=== PATIENT | male | born 1955 | race Caucasian/White ===

== ENCOUNTER 2017-01-16 09:54 | Outpatient (CLI) | payer BC ==
[2017-01-16 11:21] LABS: #Eosinphils 0.1 thou/uL (0.0-0.7); #Lymphocytes 1.8 thou/uL (1.20-3.40); #Monocytes 0.7 thou/uL (0.11-0.59); #Neutrophils 3.9 thou/uL (1.40-6.50); %Basophils 0.5 % (0.0-1.0); %Eosinophils 1.1 % (0.0-10.0); %Lymphocytes 27.6 % (21.0-51.0); %Monocytes 10.5 % (0.0-10.0); Hematocrit 43.8 % (42.0-52.0); Mean Platelet Volume 6.6 fL (7.4-10.4); Red Blood Cell (RBC) Count 4.27 mill/uL (4.70-6.10); White Blood Cell (WBC) Count 6.6 thou/uL (4.8-10.8)
== END 2017-01-16 09:55 | disposition home or self-care (01) ==
LOC: LABBT 09:54
PROVIDERS: ATTEND Orthopaedic Surgery Hand Surgery
DX: Z01.812 Encounter for preprocedural laboratory examination (principal); G56.02 Carpal tunnel syndrome, left upper limb; G56.22 Lesion of ulnar nerve, left upper limb
CPT/HCPCS: 85025

== ENCOUNTER 2017-01-20 05:50 | Day surgery (SDC) | payer BC ==
[2017-01-16 10:30] VITALS: BMI 25.0
[2017-01-20] MEDS ORDERED: CEFAZOLIN/Water 2 GM/20 ML SYRINGE ONE (06:38)
[2017-01-20] MEDS ORDERED: Fentanyl 250 MCG/5 ML VIAL ONE (06:54)
[2017-01-20] MEDS ORDERED: Midazolam HCl 2 mg/2 ml Vial ONE (06:54)
[2017-01-20] MEDS ORDERED: Bupivacaine PF 0.5% 30 ML VIAL ONE (07:48)
[2017-01-20] MEDS ORDERED: Betamet Acet/Betamet Na Ph 30 MG/5 ML VIAL ONE (07:48)
[2017-01-20] MEDS ORDERED: Bacitracin Zinc Ointment 30 gm TUBE ONE (07:48)
[2017-01-20] MEDS ORDERED: Dexamethasone 20 MG/5 ML VIAL ONE (08:07)
[2017-01-20] MEDS ORDERED: PHENYLEPHRINE-NS 100 MCG/ML 10 ML SYRINGE ONE (08:07)
[2017-01-20] MEDS ORDERED: Ketorolac Tromethamine 30 MG/ML VIAL ONE ×2 (08:07→10:57)
[2017-01-20] MEDS ORDERED: Ondansetron HCl/PF 4 MG/2 ML Vial ONE (08:07)
[2017-01-20] MEDS ORDERED: Lidocaine 1% PF 5 ML VIAL ONE (08:07)
[2017-01-20] MEDS ORDERED: ePHEDrine/0.9% NaCl/PF SYRINGE 50 mg/10 ml ONE (08:07)
[2017-01-20] MEDS ORDERED: Propofol 200 MG/20 ML VIAL ONE (08:07)
[2017-01-20] MEDS ORDERED: Fentanyl 100 MCG/2 ML VIAL ONE (10:52)
[2017-01-20] MEDS ORDERED: HYDROcodone/Acetaminophen 5/325 mg Tablet ONE (11:33)
--- NOTE | 2017-01-21 08:48 | OP ---
DATE OF PROCEDURE: 01/20/2017 PREOPERATIVE DIAGNOSES: Left cubital tunnel, Perez stage 2 and left carpal tunnel syndrome. FINDNGS: 1. Small amount of stippling without true allograft formation over the median nerve at the wrist wi thout tenosynovitis, carpal canal left. 2. Flattening of the ulnar nerve within the cubital tunnel just proximal to it all the way to the l evel of the heads of the flexor carpi ulnaris over 50%, indicative of severe compression. PROCEDURES PERFORMED: 1. Left median nerve neuroplasty at the wrist. 2. Ulnar nerve neuroplasty at the elbow/cubital tunnel release. 3. Submuscular transposition of ulnar nerve at the elbow. COMPLICATIONS: None. TOURNIQUET TIME: 90 minutes. ESTIMATED BLOOD LOSS: Approximately 15 mL. INJECTABLE: A 2 mL Celestone in the carpal canal and 3 mL Celestone in the ulnar nerve. INDICATIONS: Failed conservative treatment with symptoms and electrodiagnostic criteria of the neur ocompressive listed above. DESCRIPTION OF PROCEDURE: After successful general endotracheal anesthesia, the limb was prepped an d draped. Anesthesia provided by [facility]. Them the entire upper extremity was prepped and draped free with the axilla available and a sterile tourniquet was applied. We outlined the standard carpal tunnel 2.5 cm incision in line with the rin g finger and as far distal as Bagley's cardinal line as far proximal as 5 mm distal volar wrist flex ion crease. We carried through the skin, subcutaneous tissue to identify the transverse carpal liga ment protecting all neurovascular structures. We then began to release the transverse carpal ligame nt from the mid portion distally. The motor branch was visualized and spared with a type 1 takeoff and then reversed this and began to release with a Stanton blade and tenotomy scissor combination und er direct visualization, the proximal half of the transcarpal ligament until we had reached the edge of the palmar fascia of the distal pole, which was also slightly released. Now the median nerve ca n visualized, there was no evidence of a true flattening, but there was early stippling and erythema along with a 4-5 mm area in the center canal. It was here we dripped 2 mL of Celestone, then close d the incision with hemostasis using interrupted 4-0 nylon suture mattress pattern. Bulky dressing was applied and the patient did not leave the operating room, because of the need to perform the sec ond half procedure. We now turned our attention to the elbow area, we outlined with marker. The medial epicondyle, olec ranon and outlined incision, which was 7 cm distal and 10 cm proximal to the medial epicondyle, but along the midline at the olecranon just slightly curved medially at the olecranon, but with no incis ion beyond the tip. We then continued the exsanguination with a tourniquet 250 mmHg pressure. I ma de an incision through skin, subcutaneous tissue, and then dissected the flap to allow for the media l antebrachial cutaneous nerves remain with the skin while still visualizing the appropriate bone an d joint structures of the region. The ulnar nerve was located just proximal to the triceps and saw was beginning to flatten as we entered the cubital tunnel so force. We performed the release of the ulnar nerve from the cubital tunnel proximally almost to the point of crossover the ulnar nerve and intermuscular septum. Then, we turned and performed the release of the distal end. It was here th at the nerve was flat beginning approximately 2-3 mm before the entrance to the [place] cubital tunne l and then we released the cubital tunnel and into the flexor carpi radialis , the nerve was fl at. He did have some return of normal size, but the fascia was even thicker at the level of the fir st carpal ulnaris fascia. Now, we slowly dissected the nerve free until it could be transposed anteriorly approximately 3 cm a t the level of the medial epicondyle. There was no undue tension noted on this construct. We then removed the intermuscular septum for a space of 9 cm and this allowed for excellent visualization of the medial pole flexor pronator group. The intermuscular was released at the epicondyle, and jaison ed for 14 cm and then slowly released at the superior portion of the wound. We then made a Z-shaped double L incision in the flexor pronator group with the ulnar nerve being el evated, we visualized and spared the collateral ligament, and then laid the ulnar nerve in the bed c reated by this elevation of the flexor pronator. We placed 3 mL of Celestone along this portion all the nerve and then gently covered the flexor pronator back in a lengthened fashion using a Z-plasty technique with five individual sutures of [id number] #1 Ethibond. The patient tolerated this well and no undue tension on the nerve and we prepared for closure. Remainder of the Celestone was placed over the nerve itself. The patient did have a bulky dressing fully applied and the wound was closed, but before that the proximal cubital tunnel incision was closed with a running 4-0 Monocryl subcutaneous deep dermal suture and then Steri-Strips on the skin with Benzoin. Bulky dressings ap plied at the elbow with no bacitracin, only Adaptic, 4x4s, Kerlix. The arm was splinted with the el bow in neutral position and the forearm in neutral position with a splint, Orthoglass, and the patie nt left the operating room without evidence of anesthetic or operative complication.
== END 2017-01-20 12:00 | disposition home or self-care (01) ==
LOC: SDC 05:50
PROVIDERS: ATTEND Orthopaedic Surgery Hand Surgery
PROC: 01N50ZZ Release Median Nerve, Open Approach (ICD-10-PCS; principal; 2017-01-20)
PROC: 01U407Z Supplement Ulnar Nerve with Autologous Tissue Substitute, Open Approach (ICD-10-PCS; principal; 2017-01-20)
DX: G56.22 Lesion of ulnar nerve, left upper limb (principal); G56.02 Carpal tunnel syndrome, left upper limb; F17.200 Nicotine dependence, unspecified, uncomplicated; J44.9 Chronic obstructive pulmonary disease, unspecified; M19.90 Unspecified osteoarthritis, unspecified site; J30.9 Allergic rhinitis, unspecified; E78.5 Hyperlipidemia, unspecified; I11.0 Hypertensive heart disease with heart failure; Z79.899 Other long term (current) drug therapy; Z79.51 Long term (current) use of inhaled steroids; Z96.641 Presence of right artificial hip joint; Z98.890 Other specified postprocedural states; Z80.9 Family history of malignant neoplasm, unspecified
CPT/HCPCS: 96374; J0702; J1100; J1885; J2001; J2250; J2405; J2704; J3010; S0020

== ENCOUNTER 2017-03-30 10:03 | Outpatient (CLI) | payer BC ==
[2017-03-30 11:50] LABS: Hemoglobin 14.4 g/dL (14.0-18.0); Mean Corpuscular HGB CONC 33.2 g/dL (32.0-36.0); Mean Corpuscular Hemoglobin 34.5 pg (27.0-31.0); Mean Platelet Volume 6.9 fL (7.4-10.4); Platelet Count 216 thou/uL (130-400); RBC Distribution Width 13.1 % (11.5-14.5); Red Blood Cell (RBC) Count 4.16 mill/uL (4.70-6.10); White Blood Cell (WBC) Count 6.5 thou/uL (4.8-10.8)
[2017-03-30 11:56] LABS: Bilirubin Negative (Negative); Blood, Urine Small (Negative); Clarity CLEAR (Clear); Glucose, Urine (Dipstick) Negative (Negative); Leukocyte Negative (Negative); Nitrite Negative (Negative); Protein, Urine (Dipstick) Negative (Neg-Trace); Specific Gravity, Urine 1.014 (1.002-1.036); Urobilinogen 0.2 mg/dL (0.2-1.0)
[2017-03-30 12:01] LABS: Bacteria/HPF None Seen HPF (None Seen); Hyaline Casts/LPF 0-3 HYALINE CAST LPF (0-3 Hyaline); INR-International Normal Ratio 0.9; PTT 33.2 SEC (22.9-36.1); Prothrombin Time 12.3 SEC (12.0-14.7); Squamous Epithelial None Seen HPF (0-3); WBC/HPF 0-3 HPF (0-3)
--- NOTE | 2017-03-30 12:14 | RAD ---
CHEST TWO VIEWS: History: Pre op. Comparison: None. FINDINGS: There is mild thickening of the right minor fissure. Lungs are clear. No pneumothorax or effusion. No acute osseous abnormality. Moderate degenerative disease at the thoracolumbar junction. IMPRESSION: No acute intrathoracic abnormality. POS: [facility]
[2017-03-30 12:34] LABS: ALT (SGPT) 22 U/L (8-55); AST (SGOT) 26 U/L (5-34); Albumin 4.3 g/dL (3.4-4.8); Alkaline Phosphatase 97 U/L (40-150); Anion Gap 15 mmol/L (10-20); BUN (Urea Nitrogen) 16 mg/dL (8.4-25.7); Bilirubin, Total 0.8 mg/dL (0.2-1.2); Calc. Creatinine Clearance 0 mL/min (70-130); Calcium 9.5 mg/dL (7.8-10.44); Carbon Dioxide 23 mmol/L (23-31); Chloride 99 mmol/L (98-107); Estimated GFR-MDRD 66; Globulin 2.8 g/dL (2.4-3.5); Glucose 88 mg/dL (80-115); Potassium 4.6 mmol/L (3.5-5.1); Protein, Total 7.1 g/dL (5.8-8.1); Sodium 132 mmol/L (136-145)
--- NOTE | 2017-04-24 16:30 | EKG ---
Test Reason : Blood Pressure : / mmHG Vent. Rate : 095 BPM Atrial Rate : 095 BPM P-R Int : 144 ms QRS Dur : 078 ms QT Int : 316 ms P-R-T Axes : 070 050 060 degrees QTc Int : 397 ms Normal sinus rhythm Normal ECG No previous ECGs available Confirmed by DR. Vidhya KATE ([id number]) on 04/24/2017 4:29:38 PM Referred By: CLAUDIA Confirmed By:DR. Vidhya KATE
== END 2017-03-30 10:04 | disposition home or self-care (01) ==
LOC: LABBT 10:03
PROVIDERS: ATTEND Urology
DX: Z01.818 Encounter for other preprocedural examination (principal); R97.20 Elevated prostate specific antigen [PSA]
CPT/HCPCS: 71046; 80053; 81001; 85027; 85610; 85730; 87081; 87086; 93005; 93010

== ENCOUNTER 2017-04-06 05:54 | Day surgery (SDC) | payer BC ==
[2017-03-30 10:32] VITALS: BMI 25.3
[2017-04-06] MEDS ORDERED: Levofloxacin 500 mg/D5W 100 ml Premix Bag ONE (06:04)
[2017-04-06] MEDS ORDERED: Fentanyl 100 MCG/2 ML VIAL ONE (06:15)
[2017-04-06] MEDS ORDERED: HYDROmorphone 0.5 MG/0.5 ML SYRINGE ONE (06:15)
[2017-04-06] MEDS ORDERED: cefTRIAXone\\ROCEPHIN 1 GM, Syringe 0.4 ML in Sterile Water 9.6 ML SLOW IVP SCH (07:45)
[2017-04-06] MEDS ORDERED: Phenazopyridine HCl 97.5 MG TABLET ONE (08:18)
--- NOTE | 2017-04-06 08:30 | OP ---
DATE OF PROCEDURE: 04/06/2017 PRIMARY CARE PHYSICIAN: Gabrielle San M.D. PREOPERATIVE DIAGNOSES: 1. A 61-year-old male with history of 40-50 pack year smoking history, elevated PSA. 2. Microscopic hematuria. 3. Benign prostatic hypertrophy symptoms, exacerbated with narcotic use, nasal decongestants. POSTOPERATIVE DIAGNOSES: 1. A 61-year-old male with history of 40-50 pack year smoking history, elevated PSA. 2. Microscopic hematuria. 3. Benign prostatic hypertrophy symptoms, exacerbated with narcotic use, nasal decongestants. PROCEDURES: 1. Flexible cystoscopy. 2. Transrectal ultrasound 12 needle prostate biopsy. SURGEON: Maisha Escobar D.O. ANESTHESIA: LMA. ESTIMATED BLOOD LOSS: Minimal. COMPLICATIONS: None. INTRAOPERATIVE FINDINGS: 1. Cystoscopy is grossly unremarkable, mild BPH component. 2. Bilateral ureteral orifices approximately 5-8 mm away from the bladder neck. 3. Transrectal ultrasound without any significant lesions. INDICATIONS FOR PROCEDURE AND HISTORY: Mr. Parish is a pleasant 61-year-old male with history of 40-50 pack year smoking history, COPD, presented for evaluation of elevated PSA of 5.08. Digital rectal exam is 30-35 gram prostate with no discrete nodularity. His PVR initially is mildly elevated at 49 mL. He related to me worsening BPH symptoms of slow stream, hesitancy often exacerbated by narcotics and decongestants. I did initiated him on Flomax; however, this caused him to have dizziness, therefore transitioned to Rapaflo 4 mg 1 p.o. daily. He presents today for prostate biopsy under anesthesia. I did discuss with patient regarding options of local versus anesthesia. As he has a tendency for vasovagal episode with local procedures, needle is advised under exam under anesthesia. He desired to proceed. Risks and complications including bleeding, pain, infection, urosepsis, vasovagal episode, prolonged blood in the urine and stool reviewed with patient in detail and he desired to proceed. DESCRIPTION OF PROCEDURE: After an informed consent is signed, the patient is taken to the operating room, placed in a supine position with the genital area prepped and draped in the usual surgical sterile fashion. A flexible cystoscopy was initially performed which demonstrated normal anterior and posterior urethra. The prostatic urethra was entered demonstrating mild BPH component. There was no evidence of intravesical median lobe. The ureteral orifices bilaterally identified in normal orthotopic position, it is approximately 5-8 mm from the bladder neck. There was no significant trabeculation, bladder stones, bladder tumors were not appreciated. Bladder wash for urine cytology was obtained. At this time, we placed the patient in a lateral decubitus position with all pressure points padded and protected at all times. A transrectal ultrasound probe was placed under direct visualization. Prostate volume was measured first demonstrating urethral length of 4.1, with a 4.7, height of 2.8 cm, volume estimated to be 29 grams. A 12 needle prostate biopsy was performed uneventfully in a systematic manner. No significant hypodense lesions were appreciated on the ultrasound. He tolerated the procedure well. Patient will be discharged with ciprofloxacin for a course of 3 days, Colace p.r.n. he has been tolerating low-dose Rapaflo 4 mg one by mouth daily without any issues, however does relate it is not as efficacious as Flomax. It excessive patient of obstructive urinary symptoms, inform patient that he may increase his Rapaflo to 8 mg one by mouth daily versus 4 mg one by mouth twice a day. Return to clinic next week for pathology review. [facility]
== END 2017-04-06 10:15 | disposition home or self-care (01) ==
LOC: SDC 05:54
PROVIDERS: ATTEND Urology
PROC: 0VB07ZX Excision of Prostate, Via Natural or Artificial Opening, Diagnostic (ICD-10-PCS; principal; 2017-04-06)
DX: R97.20 Elevated prostate specific antigen [PSA] (principal); R31.29 Other microscopic hematuria; J44.9 Chronic obstructive pulmonary disease, unspecified; M19.90 Unspecified osteoarthritis, unspecified site; F17.200 Nicotine dependence, unspecified, uncomplicated; J30.9 Allergic rhinitis, unspecified; E78.5 Hyperlipidemia, unspecified; I11.9 Hypertensive heart disease without heart failure; Z79.51 Long term (current) use of inhaled steroids; Z79.899 Other long term (current) drug therapy; Z96.641 Presence of right artificial hip joint; Z98.890 Other specified postprocedural states
CPT/HCPCS: 88112; 88305; 88341; 88342; A4216; J0131; J0696; J1170; J1956; J3010

== ENCOUNTER 2017-05-07 08:33 | Outpatient (CLI) | payer BC ==
[2017-05-07] MEDS ORDERED: Iopamidol 370 76% 100 ML VIAL ONE (09:00)
--- NOTE | 2017-05-07 10:13 | CT ---
PRE AND POSTCONTRAST ENHANCED CT IMAGES OF ABDOMEN AND PELVIS: HISTORY: Patient with prostate cancer. FINDINGS: IV contrast was given as well as precontrast-enhanced axial images were obtained from the dome of the diaphragm through the pubic symphysis. The lung bases are unremarkable. No evidence of free intraperitoneal air is seen. The liver, spleen, pancreas, gallbladder, adrenal glands, and kidneys were unremarkable. No evidence of hydroureteral nephrosis is seen. No evidence of periaortic lymphadenopathy is seen. Some descending and sigmoid colonic diverticulosis is seen. There is an infrarenal abdominal aortic aneurysm axial dimensions measuring 5.6 x 5.4 cm. Superior i nferior length measures 8.9 cm. The aneurysm begins approximately 2 cm above the takeoff of the tom l arteries. The aneurysm extends all the way to but does not extend into the iliac bifurcations. No definite evidence of fat stranding seen surrounding the aneurysm. The superior mesenteric artery as well as celiac arteries are patent and are not involved within the aneurysm. The inferior mesente ceci artery is seen originating from the anterior aspect of the aneurysm. There does appear to be mariaelena w within the MIR. There does appear to be a right inguinal hernia present without evidence of significant bowel within it. There do appear to be some mild areas of sclerotic change seen in the right iliac bone just lateral t o the upper aspect of the right SI joint. The prostate gland is mildly enlarged. IMPRESSION: 1. Area of sclerotic change in the right iliac bone. Whether this represents a focal metastatic les ion I cannot determine. 2. No evidence of periaortic lymphadenopathy. 3. Infrarenal abdominal aortic aneurysm. 4. Right inguinal hernia. 5. Colonic diverticulosis. Findings were conveyed to Dr. Bria Barker by phone. She instructed us to allow the patient to leave , and she will have the patient follow with vascular surgery. CODE CR POS: [facility]
== END 2017-05-07 08:34 | disposition home or self-care (01) ==
LOC: SCSCT 08:33
PROVIDERS: ATTEND Urology
DX: C61 Malignant neoplasm of prostate (principal); R31.29 Other microscopic hematuria; I71.4 Abdominal aortic aneurysm, without rupture; K40.90 Unilateral inguinal hernia, without obstruction or gangrene, not specified as recurrent; K57.30 Diverticulosis of large intestine without perforation or abscess without bleeding
CPT/HCPCS: 74178

== ENCOUNTER 2017-05-29 09:48 | Outpatient (CLI) | payer BC ==
--- NOTE | 2017-05-29 15:15 | NM ---
NUCLEAR MEDICINE BONE SCAN: HISTORY: The patient has malignant neoplasm of prostate. COMPARISON: CT abdomen and pelvis 05/07/17. TECHNIQUE: Whole body imaging performed after intravenous administration of 30 mCi Technetium 99 MDP. There is uptake seen within both kidneys and urinary bladder. Moderate degenerative disease of the right acet abulum. Right hip arthroplasty. Moderate degenerative disease with mid foot and left great toe meta tarsophalangeal joint. Increased radiotracer uptake in the lower thoracic spine from degenerative change. IMPRESSION: No evidence of osseous metastatic disease. POS: [facility]
== END 2017-05-29 09:49 | disposition home or self-care (01) ==
LOC: NM 09:48
PROVIDERS: ATTEND Urology
DX: C61 Malignant neoplasm of prostate (principal)
CPT/HCPCS: 78306; A9503

== ENCOUNTER 2017-06-24 09:15 | Inpatient (IN) | payer BC ==
[2017-06-25] MEDS ORDERED: CEFAZOLIN/Water 2 GM/20 ML SYRINGE ONE (06:06)
[2017-06-25] MEDS ORDERED: Heparin 10,000 UNITS/1 ML VIAL 30,000 UNITS in Sodium Chloride 0.9% 1,000 ML FS SCH (06:45)
[2017-06-25] MEDS ORDERED: Norepinephrine 8 MG/0.9% NS 0 ML ONE (06:50)
[2017-06-25] MEDS ORDERED: Midazolam HCl 2 mg/2 ml Vial ONE ×2 (06:50→06:57)
[2017-06-25] MEDS ORDERED: Nitroglycerin 50 MG/250 ML BOT 0 ML ONE (06:50)
[2017-06-25] MEDS ORDERED: Fentanyl 250 MCG/5 ML VIAL ONE (06:50)
[2017-06-25] MEDS ORDERED: Famotidine/PF 20 mg/2ml Vial ONE (06:50)
[2017-06-25] MEDS ORDERED: Fentanyl 100 MCG/2 ML VIAL ONE ×4 (06:50→11:53)
[2017-06-25] MEDS ORDERED: Promethazine HCl 25 MG/ML VIAL SLOW IVP PRN (07:25)
[2017-06-25] MEDS ORDERED: Ondansetron HCl/PF 4 MG/2 ML Vial IVP PRN ×2 (07:25→10:19)
[2017-06-25] MEDS ORDERED: Promethazine HCl 25 MG/ML VIAL IM PRN ×2 (07:25→11:03)
[2017-06-25] MEDS ORDERED: ePHEDrine/0.9% NaCl/PF SYRINGE 50 mg/10 ml ONE ×2 (08:22→14:42)
[2017-06-25] MEDS ORDERED: Phenylephrine HCL 10 MG/ML VIAL ONE (08:22)
[2017-06-25] MEDS ORDERED: Albumin 5% 500 ML ONE (08:27)
[2017-06-25] MEDS ORDERED: Protamine Sulfate 50 MG/5 ML VIAL ONE (09:22)
[2017-06-25] MEDS ORDERED: hydrALAZINE 20 MG/ML VIAL SLOW IVP PRN (10:19)
[2017-06-25] MEDS ORDERED: Fentanyl 100 MCG/2 ML VIAL SLOW IVP PRN ×2 (10:19)
[2017-06-25] MEDS ORDERED: Nitroglycerin 50 MG/250 ML BOT 250 ML IVPB PRN (10:19)
[2017-06-25] MEDS ORDERED: Acetaminophen 325 MG TAB PO PRN (10:19)
[2017-06-25] MEDS ORDERED: Phenylephrine 10 MG/NS 250 ML 250 ML IVPB PRN (10:19)
[2017-06-25] MEDS ORDERED: diphenhydrAMINE 50 MG/ML VIAL IM PRN (11:03)
[2017-06-25] MEDS ORDERED: diphenhydrAMINE 25 MG CAP PO PRN (11:03)
[2017-06-25] MEDS ORDERED: Fentanyl 5000 MCG/250 ML CADD IVPB PRN (11:03)
[2017-06-25] MEDS ORDERED: diphenhydrAMINE 50 MG/ML VIAL IVP PRN (11:03)
[2017-06-25] MEDS ORDERED: Naloxone HCl 0.4 mg/ml Vial IV PRN (11:03)
[2017-06-25] MEDS ORDERED: Zolpidem Tartrate 5 MG TAB PO PRN (11:03)
[2017-06-25] MEDS ORDERED: Communication Order-Pharmacy FS SCH (11:15)
[2017-06-25 12:41] VITALS: BMI 25.0
--- NOTE | 2017-06-25 13:11 | CON ---
DATE OF SERVICE: 06/25/2017 SERVICE: Pulmonary Medicine. REASON FOR CONSULTATION: ICU patient. HISTORY OF PRESENT ILLNESS: The patient is a 61-year-old white male with past medical history significant for hypertension and dyslipidemia who presented to the hospital for an elective outpatient repair of an abdominal aortic aneurysm. He presented to the hospital in his usual state of health. He did not have any abrupt decompensation. The surgery was uncomplicated. He is being monitored in the ICU after this operation was performed. He has no complaints of chest discomfort, nausea, vomiting or diarrhea. He has a little bit of a belly tenderness which should be expected following this procedure. He has no leg discomfort. PAST MEDICAL HISTORY: 1. COPD. 2. Degenerative joint disease. 3. Hyperlipidemia. 4. Hypertension. 5. Allergic rhinitis. 6. Left internal carotid artery occlusion. 7. Prostate cancer. PAST SURGICAL HISTORY: 1. Right hip replacement. 2. Carpal tunnel surgery. 3. Cyst removed from back. 4. Open repair of abdominal aortic aneurysm. FAMILY HISTORY: Noncontributory. SOCIAL HISTORY: He smokes 1-1/2 packs on a daily basis. He quit smoking roughly 1 month prior to presentation. He had a [id number] history of smoking prior to presentation. He denies any significant alcohol or illicit drug use. He has no exposure to chemicals, dust asbestos or tuberculosis. ALLERGIES: No known drug allergies. MEDICATIONS: List of inpatient medications were reviewed. The outpatient medications follow: 1. Advair 250/50 one inhalation b.i.d. 2. Lisinopril 10 mg p.o. daily. 3. Atorvastatin 40 mg p.o. daily. 4. Aspirin 81 mg p.o. daily. 5. Chantix 1 mg p.o. b.i.d. REVIEW OF SYSTEMS: General, head, ears, eyes, nose, throat, cardiovascular, respiratory, GI, , musculoskeletal, neurologic and skin is negative except as mentioned in the HPI. PHYSICAL EXAMINATION: VITAL SIGNS: Afebrile, pulse 74, respirations 14, saturation 98% on 2 liters nasal cannula. GENERAL: The patient is awake and alert, in no apparent distress. LUNGS: Decent air entry. There is a slightly prolonged expiratory phase, but I do not appreciate wheezing, rhonchi or crackles. HEART: Normal rate, regular. ABDOMEN: Soft, nontender, nondistended. Bowel sounds are positive. MUSCULOSKELETAL: No cyanosis or clubbing. There is no pitting in the bilateral lower extremities. NEUROLOGIC: Grossly nonfocal. EXTREMITIES: Pedal pulses are 2+ and symmetric bilaterally. LABORATORIES: WBC 6.7, hemoglobin 14.7, platelets 244,000. Sodium 135. Basic metabolic profile is otherwise unremarkable with a creatinine of 0.9. Urinalysis is unremarkable. Recent urinary tract infection was present with Proteus. This was previously treated. ASSESSMENT: 1. Acute hypoxic respiratory failure, improving. 2. Chronic obstructive pulmonary disease without acute exacerbation. 3. Open abdominal aortic aneurysm repair, postop day #0. DISCUSSION AND PLAN: Pulmonary will be available while the patient is in the ICU for any issues that come up. At this point, he has no acute respiratory difficulties. We will wean oxygen as tolerated. Home medications for the most part will be continued. We will provide him with DuoNebs on an as needed basis during the hospital stay. We will add Dulera to replace his outpatient Advair. 70 minutes have been devoted to this patient in various activities. I personally reviewed all imaging studies and laboratory data noted within this document. For fifty percent of this time, I was interacting with the patient at the bedside or coordinating care with the care team. For the remainder of the time I was immediately available to the patient in the hospital unit. ANYA
[2017-06-25] MEDS: CEFAZOLIN/Water 2 GM/20 ML SYRINGE SLOW IVP SCH ×2 (14:39→22:14)
[2017-06-25] MEDS: Lactated Ringer's 1,000 ML IV SCH ×2 (14:40→18:49)
[2017-06-25] MEDS ORDERED: Esmolol 100 MG/10 ML VIAL ONE (14:42)
[2017-06-25] MEDS ORDERED: Ondansetron HCl/PF 4 MG/2 ML Vial ONE (14:42)
[2017-06-25] MEDS ORDERED: Ketorolac Tromethamine 30 MG/ML VIAL ONE (14:42)
[2017-06-25] MEDS ORDERED: Glycopyrrolate 0.2 MG/ML 5 ML SYRINGE ONE (14:42)
[2017-06-25] MEDS ORDERED: PROPOFOL 200 MG/20 ML VIAL ONE (14:42)
[2017-06-25] MEDS ORDERED: Protamine Sulfate 250 MG/25 ML VIAL ONE (14:42)
[2017-06-25] MEDS ORDERED: PHENYLEPHRINE-NS 100 MCG/ML 10 ML SYRINGE ONE (14:42)
[2017-06-25] MEDS ORDERED: Heparin 30,000 units/30 ml VIAL ONE (14:42)
[2017-06-25] MEDS ORDERED: Lidocaine 1% PF 5 ML VIAL ONE (14:42)
--- NOTE | 2017-06-25 14:51 | OP ---
PREOPERATIVE DIAGNOSIS: Abdominal aortic aneurysm. POSTOPERATIVE DIAGNOSIS: Abdominal aortic aneurysm. PROCEDURE PERFORMED: Aorta by external iliac bypass with a 12 x 7 mm Hemashield graft. SURGEON: Dr. Philip. RIBBON S[employer] OPERATOR: Lani Thurman ESTIMATED BLOOD LOSS: 200 mL PROCEDURE IN DETAIL: After adequate anesthesia had been obtained, a midline abdominal incision was m elena. Abdomen was entered and the bowel was retracted to the right. Aorta was exposed as was the ane urysm and proximal neck. Dissection was then carried down to the distal aorta where attention was tu rned to exposing the right and left external iliac arteries at their origins. These were soft vessel s. Following this, the tunnels were created bluntly under the ureters and heparin was administered a nd ACT levels followed. Cross clamping of the aorta proximally and distally was performed and the an eurysm opened and there were no lumbars to oversew. Following this, the Hemashield 12 x 7 graft was anastomosed proximally with a running 3-0 Prolene suture. Following this, the limbs were brought thr ough the tunnels and the left external iliac artery was opened at its origin and an end-to-side anast omosis completed. The iliac artery was small compared to the 7 mm graft. Following this, a similar anastomosis was performed on the right. After completing this, heparin was partially reversed with p rotamine. Reperitonealization of both iliac limbs was carried out and the aneurysm was then closed o claire the graft. Reperitonealization was carried out, following which PDS suture double stranded was u sed to close the fascia. Subcutaneous tissue and skin were closed in layers and the patient is to be taken to the ICU.
[2017-06-25] MEDS ORDERED: Metoprolol Tartrate 25 MG TAB PO SCH (21:00)
[2017-06-26] MEDS: fentaNYL Citrate/PF 2,000 MCG in Sodium Chloride 0.9% 60 ML IV PRN ×2 (03:25→14:33)
[2017-06-26 04:39] LABS: #Lymphocytes 1.2 thou/uL (1.20-3.40); #Monocytes 1.1 thou/uL (0.11-0.59); #Neutrophils 8.5 thou/uL (1.40-6.50); %Basophils 0.3 % (0.0-1.0); %Eosinophils 0.1 % (0.0-10.0); %Monocytes 10.1 % (0.0-10.0); %Neutrophils 78.5 % (42.0-75.0); Hemoglobin 11.8 g/dL (14.0-18.0); Mean Corpuscular HGB CONC 33.6 g/dL (32.0-36.0); Mean Corpuscular Hemoglobin 34.7 pg (27.0-31.0); Platelet Count 201 thou/uL (130-400); RBC Distribution Width 12.9 % (11.5-14.5); Red Blood Cell (RBC) Count 3.42 mill/uL (4.70-6.10); White Blood Cell (WBC) Count 10.8 thou/uL (4.8-10.8)
[2017-06-26 04:57] LABS: Anion Gap 11 mmol/L (10-20); BUN (Urea Nitrogen) 17 mg/dL (8.4-25.7); Calc. Creatinine Clearance 78 mL/min (70-130); Calcium 8.3 mg/dL (7.8-10.44); Carbon Dioxide 23 mmol/L (23-31); Chloride 105 mmol/L (98-107); Estimated GFR-MDRD 76; Glucose 91 mg/dL (80-115); Potassium 4.2 mmol/L (3.5-5.1); Sodium 135 mmol/L (136-145)
[2017-06-26] MEDS: Lactated Ringer's 1,000 ML IV SCH ×3 (05:37→20:28)
[2017-06-26] MEDS: CEFAZOLIN/Water 2 GM/20 ML SYRINGE SLOW IVP SCH (06:19)
[2017-06-26] MEDS: Metoprolol Tartrate 25 MG TAB PO SCH ×3 (08:56→20:29)
[2017-06-26] MEDS: Ondansetron HCl/PF 4 MG/2 ML Vial IVP PRN ×2 (09:10→20:32)
[2017-06-26] MEDS ORDERED: Lactated Ringer's 1,000 ML IV SCH (09:45)
--- NOTE | 2017-06-26 09:46 | PRG ---
DATE OF SERVICE: 06/26/2017 SERVICE: Pulmonary Medicine HISTORY OF PRESENT ILLNESS: This morning, the patient was doing okay. He got out of bed into a jazmin r and his heart rate jumped up to the 140s. It then settle back down to the 120s. He felt nauseated and had about a liter of emesis. It just basically looked like what he has been drinking for the la st 24 hours. He felt almost immediately better, but his heart rate went up to the 140s afterward. H e denies any significant abdominal discomfort. He certainly has some pain there, but it is not what he would expect. He denies any current fevers or chills. He has not had a bowel movement, or passed any gas since the operation. PHYSICAL EXAMINATION: VITAL SIGNS: Afebrile, pulse 119, blood pressure 139/86, respirations 20, saturation 92% on 2 liters nasal cannula. GENERAL: The patient is awake, alert, no apparent distress. LUNGS: Decent air entry. There are no crackles present. HEART: Normal rate, regular. ABDOMEN: Soft, nontender, nondistended. Bowel sounds are positive. MUSCULOSKELETAL: No cyanosis or clubbing. There is no pitting in the bilateral lower extremities. He has excellent pulses in the bilateral lower extremities. GENITOURINARY: No [place]. NEUROLOGIC: Grossly nonfocal. LABORATORY DATA: WBC 10.8, hemoglobin 11.8, platelets 201. He dropped about 3 grams of hemoglobin c ompared to yesterday. Basic metabolic profile is essentially unremarkable with a creatinine of 0.99, which is roughly stable. ASSESSMENT: 1. Acute hypoxic respiratory failure, stable. 2. Chronic obstructive pulmonary disease without acute exacerbation. 3. Abdominal aortic aneurysm, status post open repair, postop day #1. 4. Ileus, suspected. PLAN: I will make the patient n.p.o. for the time being. We will put an NG tube down and put it to low intermittent suction. Once he stops putting significant output from it, I will clamp it and chec k residuals. He is already on some Zofran. I do think that he is a little bit dehydrated. As such, we will give him a liter of fluid and see if this helps with his heart rate and lightheadedness when he gets up. Pulmonary Critical Care will continue to follow while he remains in this location.
[2017-06-27] MEDS: Ondansetron HCl/PF 4 MG/2 ML Vial IVP PRN ×2 (03:49→12:28)
[2017-06-27] MEDS: Promethazine HCl 25 MG/ML VIAL SLOW IVP PRN ×2 (04:45→08:46)
[2017-06-27 05:20] LABS: Hemoglobin 12.8 g/dL (14.0-18.0)
[2017-06-27] MEDS: Metoprolol Tartrate 25 MG TAB PO SCH ×2 (08:48→20:53)
--- NOTE | 2017-06-27 12:44 | PRG ---
DATE OF SERVICE: 06/27/2017 SUBJECTIVE: Mr. Jerrod Parish is in the ICU, status post abdominal aortic aneurysm repair. He complains of abdominal distention, less shortness of breath. He has an Advair inhaler in the beds javier. OBJECTIVE: VITAL SIGNS: Blood pressure 131/86, sats are 96%, respiration rate 18, pulse 80. NEUROLOGIC: He is awake, responsive. EXTREMITIES: He moves all 4 extremities. CHEST: Chest reveals decreased breath sounds, no wheezing. CARDIAC: Normal S1, S2. No gallops. LABORATORY DATA: There was no lab done today. IMPRESSION: 1. Chronic obstructive pulmonary disease. 2. Status post abdominal aortic aneurysm repair. PLAN: Schedule neb, Advair as needed. PT and supportive care. We will follow.
[2017-06-27] MEDS: Lactated Ringer's 1,000 ML IV SCH (18:12)
[2017-06-27] MEDS: fentaNYL Citrate/PF 2,000 MCG in Sodium Chloride 0.9% 60 ML IV PRN (18:39)
[2017-06-28] MEDS: Lactated Ringer's 1,000 ML IV SCH ×2 (03:39→05:33)
[2017-06-28] MEDS ORDERED: HYDROcodone/Acetaminophen 5/325 mg Tablet PO PRN (08:01)
[2017-06-28] MEDS ORDERED: Fentanyl 100 MCG/2 ML VIAL SLOW IVP PRN ×2 (08:01)
[2017-06-28] MEDS: Metoprolol Tartrate 25 MG TAB PO SCH ×2 (08:23→20:40)
[2017-06-28] MEDS: HYDROcodone/Acetaminophen 5/325 mg Tablet PO PRN ×3 (10:03→20:40)
--- NOTE | 2017-06-28 12:15 | PRG ---
DATE OF SERVICE: 06/28/2017 SUBJECTIVE: He is doing well. There is no shortness of breath or coughing. He says he has been smo charla now for several days. He wanted the Chantix. I advised him since he is doing well in the [facility], to avoid taking the Chantix. OBJECTIVE: VITAL SIGNS: Blood pressure is 130/80, pulse 113, sats are 95%. CHEST: No wheezing or crackles. CARDIAC: Normal S1, S2. No gallops. ABDOMEN: Soft, no mass. IMPRESSION: 1. Chronic obstructive pulmonary disease. 2. Respiratory failure. 3. Status post abdominal aortic aneurysm repair. PLAN: Continue PT, nebulizer treatments, supportive care. We will follow.
[2017-06-28] MEDS: Ondansetron HCl/PF 4 MG/2 ML Vial IVP PRN (17:00)
[2017-06-29] MEDS: HYDROcodone/Acetaminophen 5/325 mg Tablet PO PRN ×2 (01:12→05:34)
--- NOTE | 2017-06-29 07:02 | DIS ---
HOSPITAL COURSE: The patient was admitted on 06/25/2017 where he underwent aortobiiliac bypass graft ing for an abdominal aortic aneurysm. Postoperative course was notable for resting tachycardia. He progressed nicely otherwise, tolerating a diet and having bowel movement and good pulses distally. Linda lanza was walking the halls without difficulty. He will be discharged home on aspirin 1 a day, atorvasta tin 40 a day, metoprolol 50 b.i.d. and Tylenol #3 for pain. Discharge and follow up instructions lei lanza given.
[2017-06-29 08:28] VITALS: BP 114/70; TEMP 97.6
[2017-06-29] MEDS: Metoprolol Tartrate 25 MG TAB PO SCH (09:07)
--- NOTE | 2017-06-29 10:25 | PRG ---
DATE OF SERVICE: 06/29/2017 SERVICE: Pulmonary Medicine. INTERVAL HISTORY: The patient just got done taking a shower. He is a little bit short-winded. That being said, he is recovering nicely. He denies any chest pain, nausea, vomiting, fevers or chills. Otherwise, he is looking forward to going home today. PHYSICAL EXAMINATION: VITAL SIGNS: Afebrile, pulse 99, blood pressure 114/70, respirations 18, saturation 96% on room air. GENERAL: The patient is awake, alert, in no apparent distress. LUNGS: Excellent air entry. There is no prolonged expiratory phase, wheezing, rhonchi, or crackles present. HEART: Normal rate and regular. ABDOMEN: Soft. Nondistended. Bowel sounds are positive. MUSCULOSKELETAL: No cyanosis or clubbing. There is no pitting in the bilateral lower extremities. NEUROLOGIC: Grossly nonfocal. ASSESSMENT: 1. Acute hypoxic respiratory failure, resolved. 2. Chronic obstructive pulmonary disease without acute exacerbation. 3. Abdominal aortic aneurysm, status post open repair, postop day #4. 4. Ileus, resolved. DISCUSSION AND PLAN: The patient is being transitioned to home today. Either way, he has no further requirements for inpatient Pulmonary or Critical Care opinion and I will sign off. Please call with additional questions or concerns moving forward.
[2017-06-30 10:55] LABS: Actual Bicarbonate (HCO3a) 22.2 mEq/L (22-26); Base Excess (BEa) -2.7 mEq/L (0 (+/-) 2.5); CO2 Tension 38.9 mmHg (35.0-45.0); Hematocrit-ABG 41.4 % (42.0-52.0); Hemoglobin (Hb) 13.7 g/dL (14.0-18.0); O2 Tension (PaO2) 373.2 mmHg (80.0-100.0); pH, Arterial 7.37 (7.35-7.45)
[2017-06-30 10:56] LABS: Analyzer IN Cardio OR; Calcium, Ionized 1.2 mmol/L (1.12-1.30); Puncture Site ALINE
== END 2017-06-29 11:12 | disposition home or self-care (01) | DRG 270 ==
LOC: SURG A 06-25 05:28 → CCU 06-25 11:13 → SURG A 06-28 14:20
PROVIDERS: ADMIT Thoracic Surgery (Cardiothoracic Vascular Surgery); ATTEND Thoracic Surgery (Cardiothoracic Vascular Surgery)
PROC: 04V00DZ Restriction of Abdominal Aorta with Intraluminal Device, Open Approach (ICD-10-PCS; principal; 2017-06-25)
DX: I71.4 Abdominal aortic aneurysm, without rupture (principal); J96.01 Acute respiratory failure with hypoxia; K56.7 Ileus, unspecified; J44.9 Chronic obstructive pulmonary disease, unspecified; I10 Essential (primary) hypertension; C61 Malignant neoplasm of prostate; E78.5 Hyperlipidemia, unspecified; M19.90 Unspecified osteoarthritis, unspecified site; F17.210 Nicotine dependence, cigarettes, uncomplicated; Z79.82 Long term (current) use of aspirin; Z79.899 Other long term (current) drug therapy
CPT/HCPCS: 36415; 36416; 80048; 82805; 85014; 85018; 85025; 86850; 86900; 86901; 94640; A4216; G8978-GP-CL; G8979-GP-CJ; J0360; J1642; J1644; J1885; J2001; J2250; J2370; J2405; J2550; J2704; J2720; J3010; J7050; J7620; P9045; S0028

== ENCOUNTER 2017-06-24 09:21 | Outpatient (CLI) | payer BC ==
[2017-06-24 11:36] LABS: Hemoglobin 14.7 g/dL (14.0-18.0); Mean Corpuscular HGB CONC 34.2 g/dL (32.0-36.0); Mean Corpuscular Hemoglobin 34.9 pg (27.0-31.0); Mean Platelet Volume 6.7 fL (7.4-10.4); Platelet Count 244 thou/uL (130-400); RBC Distribution Width 12.7 % (11.5-14.5); Red Blood Cell (RBC) Count 4.23 mill/uL (4.70-6.10); White Blood Cell (WBC) Count 6.7 thou/uL (4.8-10.8)
[2017-06-24 11:59] LABS: Anion Gap 9 mmol/L (10-20); BUN (Urea Nitrogen) 15 mg/dL (8.4-25.7); Calc. Creatinine Clearance 0 mL/min (70-130); Calcium 9.8 mg/dL (7.8-10.44); Carbon Dioxide 26 mmol/L (23-31); Chloride 104 mmol/L (98-107); Estimated GFR-MDRD 84; Glucose 89 mg/dL (80-115); Potassium 4.2 mmol/L (3.5-5.1); Sodium 135 mmol/L (136-145)
== END 2017-06-24 09:22 | disposition home or self-care (01) ==
LOC: LABBT 09:21
PROVIDERS: ATTEND Thoracic Surgery (Cardiothoracic Vascular Surgery)
DX: Z01.812 Encounter for preprocedural laboratory examination (principal); I71.4 Abdominal aortic aneurysm, without rupture
CPT/HCPCS: 36430; 80048; 85027; 86850; 86900; 86901

== ENCOUNTER 2017-10-08 19:09 | Emergency (ER) | payer BC ==
[2017-10-08] MEDS ORDERED: cefTRIAXone\\ROCEPHIN 1 GM VIAL ONE (20:36)
[2017-10-08 21:36] LABS: Bilirubin Negative (Negative); Blood, Urine Moderate (Negative); Clarity CLEAR (Clear); Glucose, Urine (Dipstick) Negative (Negative); Leukocyte Trace (Negative); Nitrite Negative (Negative); Protein, Urine (Dipstick) Negative (Neg-Trace); Specific Gravity, Urine 1.011 (1.002-1.036); Urobilinogen 0.2 mg/dL (0.2-1.0)
[2017-10-08 21:38] LABS: Bacteria/HPF None Seen HPF (None Seen); Hyaline Casts/LPF 0-3 HYALINE CAST LPF (0-3 Hyaline); Pathc Cast-AUWi Flag 0.29 (0-2.49); RBC/HPF 21-50 HPF (0-3); Squamous Epithelial None Seen HPF (0-3); WBC/HPF 0-3 HPF (0-3)
[2017-10-08] MEDS ORDERED: Acetaminophen/Codeine 30-300mg Tablet ONE (21:41)
== END 2017-10-08 22:16 | disposition home or self-care (01) ==
LOC: ERS 19:09
DX: N99.89 Other postprocedural complications and disorders of genitourinary system (principal); R33.9 Retention of urine, unspecified; E78.5 Hyperlipidemia, unspecified; I10 Essential (primary) hypertension; Z87.891 Personal history of nicotine dependence; Z79.891 Long term (current) use of opiate analgesic; Z79.899 Other long term (current) drug therapy
CPT/HCPCS: 51702; 51798; 81003; 81015; 96365; J0696

== ENCOUNTER 2017-12-31 11:30 | Inpatient (IN) | payer BC ==
[2018-01-01] MEDS ORDERED: CEFAZOLIN/Water 2 GM/20 ML SYRINGE ONE (06:10)
[2018-01-01] MEDS ORDERED: Albumin 5% 500 ML ONE (06:28)
[2018-01-01] MEDS ORDERED: Midazolam HCl 2 mg/ml Syrup 5 ml UD Cup ONE (06:53)
[2018-01-01] MEDS ORDERED: Midazolam HCl 2 mg/2 ml Vial ONE (06:54)
[2018-01-01] MEDS ORDERED: Fentanyl 250 MCG/5 ML VIAL ONE (07:15)
[2018-01-01] MEDS ORDERED: Midazolam HCl 5 mg/5 ml Vial ONE (07:16)
[2018-01-01] MEDS ORDERED: Phenylephrine HCL 10 MG/ML VIAL ONE (07:16)
[2018-01-01] MEDS ORDERED: Insulin Regular 300 UNITS/3 ML VIAL ONE ×2 (10:17→11:49)
[2018-01-01] MEDS ORDERED: Magnesium 2 GM/NS 0.9% 100 ML 2 GM in Premix Bag 1 BAG IVPB SCH (11:35)
[2018-01-01] MEDS ORDERED: Post-Op Insulin Drip Protocol IVPB ONE (11:35)
[2018-01-01] MEDS ORDERED: Fentanyl 100 MCG/2 ML VIAL SLOW IVP PRN ×2 (11:35)
[2018-01-01] MEDS ORDERED: Bisacodyl 10 MG SUPP PR PRN ×2 (11:35→13:31)
[2018-01-01] MEDS ORDERED: Nitroglycerin 50 MG/250 ML BOT 250 ML IVPB PRN (11:35)
[2018-01-01] MEDS ORDERED: hydrALAZINE 20 MG/ML VIAL SLOW IVP PRN ×2 (11:35→15:08)
[2018-01-01] MEDS ORDERED: Hetastarch 6% 500 ML 500 ML IVPB PRN ×2 (11:35→13:31)
[2018-01-01] MEDS ORDERED: Promethazine HCl 25 MG/ML VIAL IM PRN ×2 (11:35→13:31)
[2018-01-01] MEDS ORDERED: Acetaminophen 325 MG TAB PO PRN ×2 (11:35→13:31)
[2018-01-01] MEDS ORDERED: CEFAZOLIN/Water 2 GM/20 ML SYRINGE SLOW IVP SCH (11:35)
[2018-01-01] MEDS ORDERED: Bisacodyl 5 MG TAB PO PRN ×2 (11:35→13:31)
[2018-01-01] MEDS ORDERED: Potassium Chloride 20 MEQ/100 ML PREMIX BAG IVPB PRN (11:35)
[2018-01-01] MEDS ORDERED: Mag-Al 1200 mg/1200 mg/30 ML UDCUP PO PRN ×2 (11:35→13:31)
[2018-01-01] MEDS ORDERED: Sodium Chloride 0.9% 1,000 ML IV SCH (11:35)
[2018-01-01] MEDS ORDERED: Guaifenesin DM 100-10/5 ML UDCUP PO PRN (11:35)
[2018-01-01] MEDS ORDERED: Phenylephrine 10 MG/NS 250 ML 250 ML IVPB PRN (11:35)
[2018-01-01] MEDS ORDERED: Ondansetron HCl/PF 4 MG/2 ML Vial IVP PRN ×2 (11:35→13:31)
[2018-01-01] MEDS ORDERED: HYDROcodone/Acetaminophen 5/325 mg Tablet PO PRN ×3 (11:35→13:31)
[2018-01-01] MEDS ORDERED: DOPamine 400 MG/D5W 250 ML 250 ML IVPB PRN ×2 (11:35→13:31)
[2018-01-01] MEDS ORDERED: Papaverine 60 MG/2 ML VIAL ONE ×2 (11:45→13:29)
[2018-01-01] MEDS ORDERED: Heparin 5,000 UNITS/ML VIAL ONE ×2 (11:45→13:29)
[2018-01-01] MEDS ORDERED: Calcium Chloride 1 GM/10 ML Abboject SYRINGE ONE ×2 (11:45→13:29)
[2018-01-01] MEDS ORDERED: Sodium Bicarb 50 MEQ/50 ML VIAL ONE ×2 (11:45→13:29)
[2018-01-01] MEDS ORDERED: Cardioplegic Soln 1,000 ML BAG ONE ×2 (11:45→13:29)
[2018-01-01] MEDS ORDERED: Thrombin 5000 UNITS/5 ML VIAL ONE ×2 (11:45→13:29)
--- NOTE | 2018-01-01 11:51 | OP ---
DATE OF PROCEDURE: 01/01/2018 PREOPERATIVE DIAGNOSIS: Coronary artery disease. PROCEDURE: Coronary artery bypass graft x4, good quality CEDILLO to a nice LAD 1.5-2 mm, small saphenou s vein graft to a 1.5-2 mm main right, to a 1.5 mm OM distally and to a 1.5 mm diagonal. SURGEON: Dru Philip M.D. CUSTOMER SERVICE ADMINISTRATOR: Ricky Thurman M.D. TRANSFUSION: None. PROCEDURE IN DETAIL: After adequate anesthesia had been obtained, the patient was prepped and draped . Dr. Thurman did an endovascular vein harvest on the left greater saphenous vein while I perfor med a median sternotomy. Left internal mammary artery was harvested as a pedicle entering the left p leura in one small area. It was then brought posterior to the thymus gland. Aorta and right atrium were cannulated and after institution of cardiopulmonary bypass, vessels were inspected for grafting. After cross clamping the aorta, a liter of cardioplegic solution was given following which the four distal anastomoses were completed. Following this, the cross-clamp was removed and 2 proximal anast omoses performed on the aortic root from the right coronary artery in the obtuse marginal. Partial o ccluding clamp was removed and to the side of the OM graft, the diagonal graft was anastomosed. The patient was then weaned from cardiopulmonary bypass, cannulas removed and protamine given systemicall y. Mediastinal and left pleural drains were placed and after inspecting distal anastomosis, sternum was reapproximated with #7 interrupted wire and subcutaneous tissue and skin were closed in layers. The patient is to be taken to the ICU in guarded condition.
[2018-01-01] MEDS ORDERED: Ketorolac Tromethamine 30 MG/ML VIAL IVP SCH (12:00)
[2018-01-01 12:15] LABS: CO2 Tension 42.2 mmHg (35.0-45.0); Calcium, Ionized 1.18 mmol/L (1.12-1.30); Carboxyhemoglobin (COHb) 0.6 gm% (0.0-3.0); Hemoglobin (Hb) 11.2 g/dL (14.0-18.0); O2 Tension (PaO2) 66.6 mmHg (> 80.0); Potassium - ABG Lab 3.84 mmol/L (3.70-5.30); pH, Arterial 7.31 (7.35-7.45)
[2018-01-01 12:19] LABS: Puncture Site LINE
[2018-01-01 12:44] LABS: #Basophils 0.1 thou/uL (0.0-0.2); #Eosinphils 0.1 thou/uL (0.0-0.7); #Lymphocytes 1.8 thou/uL (1.20-3.40); #Neutrophils 14.7 thou/uL (1.40-6.50); %Basophils 0.6 % (0.0-1.0); %Eosinophils 0.5 % (0.0-10.0); %Lymphocytes 10.4 % (21.0-51.0); %Monocytes 5.5 % (0.0-10.0); %Neutrophils 83.1 % (42.0-75.0); Hemoglobin 10.6 g/dL (14.0-18.0); Mean Corpuscular HGB CONC 31.9 g/dL (32.0-36.0); Mean Corpuscular Volume 97.2 fL (78.0-98.0); Mean Platelet Volume 7.7 fL (7.4-10.4); Platelet Count 173 thou/uL (130-400); RBC Distribution Width 14.1 % (11.5-14.5); Red Blood Cell (RBC) Count 3.41 mill/uL (4.70-6.10); White Blood Cell (WBC) Count 17.7 thou/uL (4.8-10.8)
[2018-01-01] MEDS ORDERED: Heparin 10,000 UNITS/1 ML VIAL 30,000 UNITS in Sodium Chloride 0.9% 1,000 ML FS SCH (12:45)
[2018-01-01] MEDS ORDERED: Hetastarch 6% 500 ML 500 ML ONE (12:47)
[2018-01-01 13:13] LABS: Anion Gap 9 mmol/L (10-20); BUN (Urea Nitrogen) 17 mg/dL (8.4-25.7); Calc. Creatinine Clearance 74 mL/min (70-130); Calcium 8.3 mg/dL (7.8-10.44); Carbon Dioxide 23 mmol/L (23-31); Chloride 109 mmol/L (98-107); Estimated GFR-MDRD 62; Glucose 132 mg/dL (80-115); Potassium 4.1 mmol/L (3.5-5.1); Sodium 137 mmol/L (136-145)
[2018-01-01] MEDS ORDERED: Magnesium 5 GM/10 ML VIAL ONE (13:29)
[2018-01-01] MEDS ORDERED: Nitroglycerin 50 MG/250 ML BOT ONE (13:29)
[2018-01-01] MEDS ORDERED: Vecuronium 10 MG VIAL ONE (13:29)
[2018-01-01] MEDS ORDERED: Heparin 30,000 units/30 ml VIAL ONE (13:29)
[2018-01-01] MEDS ORDERED: Aminocaproic Acid 5 GM/20 ML VIAL ONE (13:29)
[2018-01-01] MEDS ORDERED: Potassium Chloride 60 MEQ/30 ML VIAL ONE (13:29)
[2018-01-01] MEDS ORDERED: Lidocaine 2% PF 100 mg/5 ml Syringe ONE (13:29)
[2018-01-01] MEDS ORDERED: PHENYLEPHRINE-NS 100 MCG/ML 10 ML SYRINGE ONE (13:29)
[2018-01-01] MEDS ORDERED: Mannitol 12.5 GM/50 ML ONE (13:29)
[2018-01-01] MEDS ORDERED: Protamine Sulfate 250 MG/25 ML VIAL ONE (13:29)
[2018-01-01] MEDS ORDERED: PROPOFOL 200 MG/20 ML VIAL ONE (13:29)
[2018-01-01] MEDS ORDERED: Dextrose 50% Abboject 50 ML SYRINGE IVP PRN (13:31)
[2018-01-01] MEDS ORDERED: Phenylephrine 10 MG/NS 250 ML 250 ML IVPB SCH (13:31)
[2018-01-01] MEDS ORDERED: Diabetic Tussin DM 5 ML UDCUP PO PRN (13:31)
[2018-01-01] MEDS ORDERED: NITROGLYCERIN 50 MG/250 ML IVPB PRN (13:31)
[2018-01-01] MEDS ORDERED: Potassium Chloride 20 MEQ in Premix Bag 1 BAG IVPB PRN (13:31)
[2018-01-01] MEDS ORDERED: Dextrose 5% in Water 1,000 ML IV PRN (13:31)
[2018-01-01] MEDS ORDERED: Albumin 5% 500 ML IVPB PRN (13:31)
[2018-01-01] MEDS ORDERED: Fentanyl 100 MCG/2 ML VIAL IV PRN (13:31)
[2018-01-01 13:34] LABS: INR-International Normal Ratio 1.4; PTT 30.3 SEC (22.9-36.1)
[2018-01-01] MEDS ORDERED: niCARdipine HCl 25 MG in Sodium Chloride 0.9% 250 ML 240 ML IVPB SCH (13:45)
[2018-01-01] MEDS ORDERED: Magnesium 2 GM/50 ML 2 GM in Premix Bag 1 BAG IVPB SCH (13:45)
[2018-01-01] MEDS: CEFAZOLIN/Water 2 GM/20 ML SYRINGE SLOW IVP SCH ×2 (14:00→21:08)
[2018-01-01 14:51] LABS: Actual Bicarbonate (HCO3a) 21.3 mEq/L (22-28); Base Excess (BEa) -3.6 mEq/L (-2.0 to +3.0); CO2 Tension 37.8 mmHg (35.0-45.0); Calcium, Ionized 1.13 mmol/L (1.12-1.30); Carboxyhemoglobin (COHb) 1.1 gm% (0.0-3.0); Hemoglobin (Hb) 11.2 g/dL (14.0-18.0); Potassium - ABG Lab 3.98 mmol/L (3.70-5.30); pH, Arterial 7.37 (7.35-7.45)
[2018-01-01 14:52] LABS: Puncture Site LINE
[2018-01-01] MEDS: Sodium Chloride 0.9% 1,000 ML IV SCH ×3 (15:00→21:12)
--- NOTE | 2018-01-01 15:17 | RAD ---
AP CHEST: INDICATIONS: Postop followup. FINDINGS: Postop sternotomy changes are noted. Drainage catheters. Central line overlies the right atrium. E T tube is above the cesar. Mild cardiomegaly. Vascular interstitial markings are mildly prominent, suggesting mild vascular eng orgement. No confluent consolidation. Evidence of small left effusion and possibly mild left basila r atelectasis. POS: [facility]
[2018-01-01] MEDS: Ketorolac Tromethamine 30 MG/ML VIAL IVP SCH ×2 (17:05→23:11)
[2018-01-01 17:45] LABS: Hemoglobin 9.4 g/dL (14.0-18.0)
[2018-01-01] MEDS: Mometasone/Formoterol 120 PUFF INHALER INH SCH (18:53)
[2018-01-01] MEDS ORDERED: Atorvastatin Calcium 40 MG TAB PO SCH (21:00)
[2018-01-01] MEDS ORDERED: Famotidine/PF 20 mg/2ml Vial SLOW IVP SCH ×2 (21:00)
[2018-01-01] MEDS: Atorvastatin Calcium 40 MG TAB PO SCH (21:08)
[2018-01-01] MEDS: Famotidine 20 MG TAB PO SCH (21:09)
[2018-01-01] MEDS: Albumin 5% 250 ML IVPB PRN (21:46)
[2018-01-01] MEDS: Fentanyl 100 MCG/2 ML VIAL IV PRN (22:30)
--- NOTE | 2018-01-02 00:06 | CON ---
DATE OF CONSULTATION: 01/01/2018 SERVICE: Pulmonary Medicine. REASON FOR CONSULTATION: Intubated patient. HISTORY OF PRESENT ILLNESS: The patient is a 62-year-old white female with past medical history significant for coronary artery disease. She underwent an elective 4-vessel coronary bypass graft. She is postop day 0 from this procedure. She is in the ICU on mechanical ventilation and not able to provide any additional elements of the history. Currently, she just got back from the operating room and is under the effects of some sedating medications. PAST MEDICAL HISTORY: 1. Hypertension. 2. Dyslipidemia. 3. Coronary artery disease. PAST SURGICAL HISTORY: 1. Right hip replacement. 2. Carpal tunnel surgery. 3. Coronary bypass graft x4 vessels. SOCIAL HISTORY: The patient drinks socially a couple times per month. She has a history of smoking and has quit within the past year. There is no reported history of illicit drug use. FAMILY HISTORY: Noncontributory. ALLERGIES: No known drug allergies. MEDICATIONS: Lists of the patient's inpatient medications were reviewed. No specific updates were made at this time. REVIEW OF SYSTEMS: This cannot be obtained as the patient is currently intubated and sedated. PHYSICAL EXAMINATION: VITAL SIGNS: Afebrile, pulse 89, blood pressure 111/50, respirations 18, saturation 94% on room air. GENERAL: The patient is awake, alert, no apparent distress. LUNGS: Excellent air entry. There is rhonchi present. There is no prolonged expiratory phase or wheezing present. HEART: Normal rate, regular. ABDOMEN: Soft, nontender, nondistended. Bowel sounds are positive. MUSCULOSKELETAL: No cyanosis or clubbing. There is no pitting in the bilateral lower extremities. NEUROLOGIC: Grossly nonfocal. LABORATORY DATA: WBC 17.7, hemoglobin 10.6, platelets 173,000. INR 1.4, PH 7.31, pCO2 42, pO2 66. Basic metabolic profile is essentially unremarkable. Creatinine is close to baseline at 1.19. Blood sugars ranged from 154-132. ASSESSMENT: 1. Acute hypoxic respiratory failure. 2. Coronary artery disease. 3. Coronary artery bypass graft x4 vessels on postop day #0. DISCUSSION AND PLAN: The patient will be placed on a spontaneous breathing trial. When she meets criteria, extubation will be considered. Pulmonary or Critical Care will continue to follow along in this location. CRITICAL CARE TIME: 30 minutes. MTDD
[2018-01-02] MEDS: Albumin 5% 250 ML IVPB PRN ×2 (02:02→08:46)
[2018-01-02] MEDS: Fentanyl 100 MCG/2 ML VIAL IV PRN (05:23)
[2018-01-02] MEDS: Ketorolac Tromethamine 30 MG/ML VIAL IVP SCH ×4 (05:24→23:39)
[2018-01-02] MEDS: CEFAZOLIN/Water 2 GM/20 ML SYRINGE SLOW IVP SCH (05:25)
[2018-01-02 05:32] LABS: #Lymphocytes 1.2 thou/uL (1.20-3.40); #Monocytes 0.8 thou/uL (0.11-0.59); #Neutrophils 4.6 thou/uL (1.40-6.50); %Basophils 0.2 % (0.0-1.0); %Eosinophils 0.1 % (0.0-10.0); %Lymphocytes 17.6 % (21.0-51.0); %Monocytes 12.3 % (0.0-10.0); %Neutrophils 69.8 % (42.0-75.0); Hemoglobin 8.6 g/dL (14.0-18.0); Mean Corpuscular HGB CONC 32.6 g/dL (32.0-36.0); Mean Corpuscular Hemoglobin 31.6 pg (27.0-31.0); Mean Corpuscular Volume 97.1 fL (78.0-98.0); Mean Platelet Volume 7.7 fL (7.4-10.4); Platelet Count 141 thou/uL (130-400); RBC Distribution Width 14.1 % (11.5-14.5); Red Blood Cell (RBC) Count 2.71 mill/uL (4.70-6.10); White Blood Cell (WBC) Count 6.6 thou/uL (4.8-10.8)
[2018-01-02 05:47] LABS: Anion Gap 10 mmol/L (10-20); BUN (Urea Nitrogen) 22 mg/dL (8.4-25.7); Calc. Creatinine Clearance 75 mL/min (70-130); Calcium 7.4 mg/dL (7.8-10.44); Carbon Dioxide 20 mmol/L (23-31); Chloride 111 mmol/L (98-107); Estimated GFR-MDRD 62; Glucose 98 mg/dL (80-115); Potassium 4.1 mmol/L (3.5-5.1); Sodium 137 mmol/L (136-145)
[2018-01-02] MEDS: Mometasone/Formoterol 120 PUFF INHALER INH SCH ×2 (07:28→19:04)
--- NOTE | 2018-01-02 08:29 | RAD ---
SEMIUPRIGHT PORTABLE CHEST 1 VIEW: Date: 01/02/18 HISTORY: 62-year-old male with history of postop open heart. COMPARISON: 01/01/18. FINDINGS: The endotracheal tube has been removed. Monitor leads overlie the chest. Postop midline sternotomy. R ight subclavian catheter in place. Mild increased linear and interstitial markings bilaterally, but d efinite improvement from the prior study. No new confluent process. IMPRESSION: Slight increased interstitial markings bilaterally, but showing definite improvement from prior study . No significant new process. POS: [facility]
[2018-01-02] MEDS: Aspirin 325 mg Enteric Coated Tablet PO SCH (08:43)
[2018-01-02] MEDS: HYDROcodone/Acetaminophen 5/325 mg Tablet PO PRN ×4 (08:43→20:39)
[2018-01-02] MEDS: Famotidine 20 MG TAB PO SCH ×2 (08:45→20:39)
--- NOTE | 2018-01-02 08:45 | PRG ---
DATE OF SERVICE: 01/02/2018 SERVICE: Pulmonary Medicine. INTERVAL HISTORY: The patient is doing outstanding from a respiratory standpoint. He denies any cur rent chest pain, nausea, vomiting, fevers or chills. He does have appropriate chest wall tenderness. Whenever he takes a deep breath, he does get some discomforts. All of this stuff obviously is expe cted. His blood pressures remain a little marginal and he is still on some phenylephrine. He has ye t to get out of bed. Otherwise, there has been no interval change to his condition. He is not havin g any lightheadedness or presyncopal symptoms. PHYSICAL EXAMINATION: VITAL SIGNS: Afebrile, pulse 109, blood pressure 102/60, respirations 15, saturation 99% on 5 liters nasal cannula. GENERAL: The patient is awake and alert, in no apparent distress. LUNGS: Excellent air entry. There is no prolonged expiratory phase or wheezing present. HEART: Tachycardic. Regular. ABDOMEN: Soft, nontender, nondistended. Bowel sounds are positive. MUSCULOSKELETAL: No cyanosis or clubbing. He only has trace edema throughout. GENITOURINARY: Worley catheter in place. NEUROLOGIC: Grossly nonfocal. LABORATORY DATA: WBC 6.6, hemoglobin 8.6, platelets 141,000. INR 1.4. PH 7.37, pCO2 37, pO2 74. B asic metabolic profile is essentially unremarkable otherwise. Calcium is 7.4. IMAGING: Chest x-ray demonstrates increased interstitial markings bilaterally, show interval improve ment. Sternotomy wires are noted. There are some bibasilar volume loss present. No obvious large e ffusion is present. ASSESSMENT: 1. Acute hypoxic respiratory failure, likely secondary to atelectasis. 2. Coronary artery disease. 3. Coronary artery bypass graft x4 vessels, postop day #1. 4. Cardiogenic shock. DISCUSSION AND PLAN: I will give him an amp of calcium. We will try to wean the phenylephrine throu gh time. We work on mobilization through today. Pulmonary and Critical Care will continue to follow in this location. He will likely need to stay here for an additional 24 hours. Otherwise, routine postop care will be continued. Once he is off the phenylephrine, a couple small doses of Lasix will be considered.
[2018-01-02] MEDS ORDERED: Aspirin 325 MG TAB PO SCH (09:00)
[2018-01-02] MEDS ORDERED: Non-Formulary Item 1 EACH (Fluticasone/Salmeterol [Advair Diskus 250/50] 1 INH) IH SCH (09:00)
[2018-01-02] MEDS: Calcium Gluc 4.6 MEQ/10 ML (100 MG/ML) SLOW IVP SCH ×2 (09:17→12:18)
[2018-01-02] MEDS: Sodium Chloride 0.9% 1,000 ML IV SCH (09:22)
[2018-01-02] MEDS: Insulin Regular 300 UNITS/3 ML VIAL SC PRN ×3 (10:19→20:32)
[2018-01-02] MEDS: Atorvastatin Calcium 40 MG TAB PO SCH (20:39)
[2018-01-03] MEDS: HYDROcodone/Acetaminophen 5/325 mg Tablet PO PRN ×4 (00:28→19:32)
[2018-01-03] MEDS: Sodium Chloride 0.9% 1,000 ML IV SCH (03:59)
[2018-01-03 04:38] LABS: #Eosinphils 0.1 thou/uL (0.0-0.7); #Lymphocytes 1.2 thou/uL (1.20-3.40); #Monocytes 0.9 thou/uL (0.11-0.59); #Neutrophils 5.3 thou/uL (1.40-6.50); %Basophils 0.4 % (0.0-1.0); %Eosinophils 1.2 % (0.0-10.0); %Lymphocytes 16.6 % (21.0-51.0); %Monocytes 11.8 % (0.0-10.0); %Neutrophils 70.1 % (42.0-75.0); Hemoglobin 8.5 g/dL (14.0-18.0); Mean Corpuscular HGB CONC 32.6 g/dL (32.0-36.0); Mean Corpuscular Hemoglobin 31.7 pg (27.0-31.0); Mean Corpuscular Volume 97.5 fL (78.0-98.0); Mean Platelet Volume 7.3 fL (7.4-10.4); Platelet Count 137 thou/uL (130-400); RBC Distribution Width 13.9 % (11.5-14.5); Red Blood Cell (RBC) Count 2.66 mill/uL (4.70-6.10); White Blood Cell (WBC) Count 7.5 thou/uL (4.8-10.8)
[2018-01-03 04:52] LABS: Anion Gap 9 mmol/L (10-20); BUN (Urea Nitrogen) 18 mg/dL (8.4-25.7); Calc. Creatinine Clearance 98 mL/min (70-130); Calcium 7.6 mg/dL (7.8-10.44); Carbon Dioxide 19 mmol/L (23-31); Chloride 111 mmol/L (98-107); Estimated GFR-MDRD 87; Glucose 86 mg/dL (80-115); Potassium 4.1 mmol/L (3.5-5.1); Sodium 135 mmol/L (136-145)
[2018-01-03] MEDS: Ketorolac Tromethamine 30 MG/ML VIAL IVP SCH ×3 (06:14→18:27)
[2018-01-03] MEDS: Mometasone/Formoterol 120 PUFF INHALER INH SCH ×2 (07:28→19:00)
[2018-01-03] MEDS: Famotidine 20 MG TAB PO SCH ×2 (08:49→20:32)
[2018-01-03] MEDS: Aspirin 325 mg Enteric Coated Tablet PO SCH (08:49)
--- NOTE | 2018-01-03 09:48 | PRG ---
DATE OF SERVICE: 01/03/2018 SERVICE: Pulmonary Medicine. INTERVAL HISTORY: The patient is doing fantastic from a respiratory standpoint. He is breathing comfortably. No chest discomfort, nausea, vomiting , fevers or chills. He actually feels he can take a full breath today. He is off of his phenylephrine as of 0500. He is finally reaccumulated blood in his intravascular space. Otherwise, there has been no interval change to his condition. PHYSICAL EXAMINATION: VITAL SIGNS: Afebrile, pulse 106, blood pressure 105/54, respirations 10, saturation 100% on 2 liters nasal cannula. GENERAL: The patient is awake, alert, no apparent distress. LUNGS: There is excellent air entry. He does not have any crackles or rhonchi to speak up. HEART: Tachycardic. Regular. ABDOMEN: Soft, nontender, nondistended. Bowel sounds are positive. MUSCULOSKELETAL: No cyanosis or clubbing. There is no pitting in the bilateral lower extremities. NEUROLOGIC: Grossly nonfocal. LABORATORY DATA: WBC 7.5, hemoglobin 8.5, platelets 137,000. Creatinine 0.88, chloride 111, sodium 135. Calcium 7.6. IMAGING: Chest x-ray demonstrates no acute cardiopulmonary abnormality. A right-sided subclavian central venous catheter is in good position. Interstitial fullness is present. There is bibasilar atelectasis noted. There is mediastinal drains and a left-sided chest tube which are in good position. ASSESSMENT: 1. Acute hypoxic respiratory failure secondary to atelectasis, improving. 2. Coronary artery disease. 3. Coronary artery bypass graft x4 vessels, postop day #2. 4. Cardiogenic shock, resolved. DISCUSSION AND PLAN: We will stop his IV fluids as he is tolerating p.o. and his blood pressures have improved. Pulmonary Critical Care will continue to follow along in this location. Routine postop care will be continued. ANYA
--- NOTE | 2018-01-03 10:16 | RAD ---
SEMIUPRIGHT PORTABLE CHEST 1 VIEW: Date: 01/03/18 HISTORY: 62-year-old male with history of postop open heart. FINDINGS: Recent postop midline sternotomy. Right subclavian catheter. Chest tubes remain in place. Patchy incr eased markings bilaterally, more so on the basis of probably some degree of subsegmental atelectasis. No pneumothorax or other significant new process. IMPRESSION: Stable chest. Continue short-term follow-up for clearing. No significant new process. POS: [facility]
[2018-01-03] MEDS ORDERED: Metoprolol Tartrate 25 MG TAB PO SCH ×3 (10:30→21:00)
[2018-01-03] MEDS: Atorvastatin Calcium 40 MG TAB PO SCH (20:32)
[2018-01-04] MEDS: Ketorolac Tromethamine 30 MG/ML VIAL IVP SCH ×2 (01:07→05:32)
[2018-01-04 05:11] LABS: #Eosinphils 0.1 thou/uL (0.0-0.7); #Lymphocytes 0.9 thou/uL (1.20-3.40); #Monocytes 0.7 thou/uL (0.11-0.59); #Neutrophils 4.3 thou/uL (1.40-6.50); %Basophils 0.1 % (0.0-1.0); %Eosinophils 1.8 % (0.0-10.0); %Lymphocytes 14.4 % (21.0-51.0); %Monocytes 11.4 % (0.0-10.0); %Neutrophils 72.2 % (42.0-75.0); Hemoglobin 8.7 g/dL (14.0-18.0); Mean Corpuscular HGB CONC 32.5 g/dL (32.0-36.0); Mean Corpuscular Hemoglobin 31.6 pg (27.0-31.0); Mean Corpuscular Volume 97.4 fL (78.0-98.0); Mean Platelet Volume 7.4 fL (7.4-10.4); Platelet Count 143 thou/uL (130-400); RBC Distribution Width 13.9 % (11.5-14.5); Red Blood Cell (RBC) Count 2.76 mill/uL (4.70-6.10)
[2018-01-04] MEDS: HYDROcodone/Acetaminophen 5/325 mg Tablet PO PRN ×2 (05:33→19:24)
[2018-01-04 05:40] LABS: Anion Gap 8 mmol/L (10-20); BUN (Urea Nitrogen) 19 mg/dL (8.4-25.7); Calc. Creatinine Clearance 93 mL/min (70-130); Calcium 7.8 mg/dL (7.8-10.44); Carbon Dioxide 23 mmol/L (23-31); Chloride 105 mmol/L (98-107); Estimated GFR-MDRD 82; Glucose 82 mg/dL (80-115); Potassium 4.2 mmol/L (3.5-5.1); Sodium 132 mmol/L (136-145)
[2018-01-04 07:15] VITALS: BMI 28.4
[2018-01-04] MEDS: Mometasone/Formoterol 120 PUFF INHALER INH SCH ×2 (08:03→18:16)
[2018-01-04] MEDS ORDERED: Mineral Oil ENEMA PR PRN (08:14)
[2018-01-04] MEDS ORDERED: Mag-Al 1200 mg/1200 mg/30 ML UDCUP PO PRN (08:14)
[2018-01-04] MEDS ORDERED: Guaifenesin DM 100-10/5 ML UDCUP PO PRN (08:14)
[2018-01-04] MEDS ORDERED: Ondansetron HCl/PF 4 MG/2 ML Vial IVP PRN (08:14)
[2018-01-04] MEDS ORDERED: Bisacodyl 10 MG SUPP PR PRN (08:14)
[2018-01-04] MEDS ORDERED: Bisacodyl 5 MG TAB PO PRN (08:14)
[2018-01-04] MEDS ORDERED: HYDROcodone/Acetaminophen 5/325 mg Tablet PO PRN (08:14)
[2018-01-04] MEDS ORDERED: Nitroglycerin 0.4 MG TAB (25 Tab Bottle) SL PRN (08:14)
--- NOTE | 2018-01-04 08:23 | RAD ---
CHEST ONE VIEW: History: Prior surgery. Comparison: Prior day. FINDINGS: The central venous catheter tip is similar. Multiple overlying median sternotomy wires. Drains are si milar. No pneumothorax. No new focal airspace infiltrate. IMPRESSION: Similar examination of the chest. POS: [facility]
[2018-01-04] MEDS: Potassium Chloride 10 MEQ TAB PO SCH (08:41)
[2018-01-04] MEDS: Famotidine 20 MG TAB PO SCH ×2 (08:42→19:24)
[2018-01-04] MEDS: Aspirin 325 mg Enteric Coated Tablet PO SCH (08:42)
[2018-01-04] MEDS: Polyethylene Glycol 3350 17 GM Packet PO SCH (08:42)
[2018-01-04] MEDS: Docusate 100 MG CAP PO SCH ×2 (08:42→19:24)
[2018-01-04] MEDS: Furosemide 40 MG TAB PO SCH (08:43)
[2018-01-04] MEDS: Metoprolol Tartrate 25 MG TAB PO SCH ×2 (08:43→19:24)
--- NOTE | 2018-01-04 11:04 | PRG ---
DATE OF SERVICE: 01/04/2018 SERVICE: Pulmonary Medicine. INTERVAL HISTORY: The patient is doing great from a respiratory standpoint. He is breathing comfort ably. He has been weaned off oxygen altogether. He denies any current chest pain, fevers or chills. Otherwise, he is returning to his usual state of health. He continues to have a little dyspnea whe n he moves around, but for the most part, he has made significant improvements. PHYSICAL EXAMINATION: VITAL SIGNS: Afebrile, pulse 111, blood pressure 116/61, respirations 24, saturation 96% on room air . GENERAL: The patient is awake and alert, in no apparent distress. LUNGS: Excellent air entry with no prolonged expiratory phase, wheezing, rhonchi or crackles present . HEART: Normal rate, regular. ABDOMEN: Soft, nontender, nondistended. Bowel sounds are positive. MUSCULOSKELETAL: No cyanosis or clubbing. There is no pitting in the bilateral lower extremities. NEUROLOGIC: Grossly nonfocal. LABORATORY DATA: WBC 6.0, hemoglobin 8.7, platelets 143,000. INR 1.4. Basic metabolic profile is c ompletely unremarkable except for a sodium that is gently down trending to 132. IMAGING: Chest x-ray demonstrates stable exam of the chest. Right-sided subclavian central venous c atheter is in good position. I do not see the mediastinal drains on this evaluation. Costophrenic a ngles are sharp. Sternotomy wires are once again noted. ASSESSMENT: 1. Acute hypoxic respiratory failure secondary to atelectasis, resolved. 2. Coronary artery disease. 3. Coronary artery bypass graft x4 vessels, postoperative day 3. DISCUSSION AND PLAN: Routine postop care will be continued. The patient has a couple of features co nsistent with sleep apnea and is interested in knowing whether or not this is the case. As such, I w ill have him follow up with me in the outpatient setting. When he arrives on the floor, he will have no further requirements for inpatient Pulmonary or Critical Care opinion and I will sign off. Pleas e call with additional questions or concerns moving forward.
[2018-01-04] MEDS: Atorvastatin Calcium 40 MG TAB PO SCH (19:24)
[2018-01-05] MEDS: HYDROcodone/Acetaminophen 5/325 mg Tablet PO PRN ×4 (03:27→21:40)
[2018-01-05] MEDS: Mometasone/Formoterol 120 PUFF INHALER INH SCH ×2 (07:20→18:52)
[2018-01-05] MEDS: Furosemide 40 MG TAB PO SCH (08:36)
[2018-01-05] MEDS: Aspirin 325 mg Enteric Coated Tablet PO SCH (08:37)
[2018-01-05] MEDS: Potassium Chloride 10 MEQ TAB PO SCH (08:37)
[2018-01-05] MEDS: Metoprolol Tartrate 25 MG TAB PO SCH ×2 (08:37→21:35)
[2018-01-05] MEDS: Docusate 100 MG CAP PO SCH ×2 (08:37→21:35)
[2018-01-05] MEDS: Famotidine 20 MG TAB PO SCH ×2 (08:38→21:34)
[2018-01-05] MEDS: Polyethylene Glycol 3350 17 GM Packet PO SCH (08:40)
--- NOTE | 2018-01-05 18:06 | PRG ---
DATE OF SERVICE: 01/05/2018 SERVICE: Pulmonary Medicine. INTERVAL HISTORY: The patient is doing outstanding from a respiratory standpoint. His is breathing comfortably. Her remains little tachycardic, but he has this way at baseline. There has been no int erval change to his condition. He denies any current fevers or chills. He is coughing a little bit and bring up some clear sputum. Otherwise, he is actually feeling much better. OBJECTIVE: VITAL SIGNS: Afebrile, pulse 103, blood pressure 135/79, respirations 21, saturation 96% on room air . GENERAL: The patient is awake, alert, in no apparent distress. LUNGS: Excellent air entry. There is no prolonged expiratory phase or wheezing present. There are depending crackles, which are minimal. HEART: Normal rate, regular. ABDOMEN: Soft, nontender, nondistended. Bowel sounds are positive. MUSCULOSKELETAL: No cyanosis or clubbing. There is no pitting in the bilateral lower extremities. NEUROLOGIC: Grossly nonfocal. LABORATORY DATA: WBC is 6.0, hemoglobin 8.7, platelets 143,000. INR 1.4. Basic metabolic profile i s completely unremarkable except for sodium of 132. ASSESSMENT: 1. Acute hypoxic respiratory failure, resolved. 2. Coronary artery disease. 3. Coronary bypass graft x4 vessels, postop day 4. DISCUSSION AND PLAN: The patient is stable for transition out of the ICU. Pulmonary Critical Care w ill continue to follow if he remains in this location, but when he lands on the floor, he will have n o further requirements or opinion and we will sign off. We have him follow up with me in the outpati ent setting, so that we can set him up for a polysomnogram.
[2018-01-05] MEDS: Atorvastatin Calcium 40 MG TAB PO SCH (21:34)
[2018-01-06] MEDS: Mometasone/Formoterol 120 PUFF INHALER INH SCH ×2 (06:25→18:23)
[2018-01-06] MEDS ORDERED: Metoprolol Tartrate 25 MG TAB PO SCH (06:51)
[2018-01-06] MEDS: HYDROcodone/Acetaminophen 5/325 mg Tablet PO PRN ×3 (07:46→20:46)
[2018-01-06] MEDS: Docusate 100 MG CAP PO SCH ×2 (09:05→20:45)
[2018-01-06] MEDS: Famotidine 20 MG TAB PO SCH ×2 (09:05→20:45)
[2018-01-06] MEDS: Aspirin 325 mg Enteric Coated Tablet PO SCH (09:05)
[2018-01-06] MEDS: Metoprolol Tartrate 50 MG TAB PO SCH ×2 (09:05→20:46)
[2018-01-06] MEDS: Furosemide 40 MG TAB PO SCH (09:05)
[2018-01-06] MEDS: Potassium Chloride 10 MEQ TAB PO SCH (09:05)
[2018-01-06] MEDS: Polyethylene Glycol 3350 17 GM Packet PO SCH (09:06)
[2018-01-06] MEDS: Atorvastatin Calcium 40 MG TAB PO SCH (20:45)
[2018-01-07] MEDS: HYDROcodone/Acetaminophen 5/325 mg Tablet PO PRN ×2 (04:03→08:22)
[2018-01-07] MEDS: Mometasone/Formoterol 120 PUFF INHALER INH SCH (06:32)
--- NOTE | 2018-01-07 07:01 | DIS ---
HOSPITAL COURSE: Patient was admitted for elective coronary artery bypass grafting and this was unde rtaken on 01/01/2018. He underwent 4-vessel bypass grafting to the LAD, right coronary artery, dista l OM, and diagonal. Vein was somewhat small. CEDILLO was good. Target vessels were satisfactory about 1.5 mm each. Postoperative course was eventful only for some resting tachycardia, after an initial period of Harley-Synephrine support the night and day following surgery. He received no intraoperative transfusions. He was ambulating the halls without difficulty and his incisions were doing well. He will resume his home medications plus given him a prescription for 5 days of Lasix 40 daily, potassiu m 10 daily, and a prescription for Dubois 5. Discharge and follow up instructions have been given.
[2018-01-07 07:22] VITALS: BP 143/76; TEMP 99.1
[2018-01-07] MEDS: Potassium Chloride 10 MEQ TAB PO SCH (08:21)
[2018-01-07] MEDS: Aspirin 325 mg Enteric Coated Tablet PO SCH (08:21)
[2018-01-07] MEDS: Metoprolol Tartrate 50 MG TAB PO SCH (08:22)
[2018-01-07] MEDS: Docusate 100 MG CAP PO SCH (08:22)
[2018-01-07] MEDS: Famotidine 20 MG TAB PO SCH (08:22)
[2018-01-07] MEDS: Furosemide 40 MG TAB PO SCH (08:22)
[2018-01-07] MEDS: Polyethylene Glycol 3350 17 GM Packet PO SCH (08:26)
== END 2018-01-07 09:59 | disposition home or self-care (01) | DRG 235 ==
LOC: SURG A 01-01 05:50 → CCU 01-01 11:41 → 2NO 01-05 12:41
PROVIDERS: ADMIT Thoracic Surgery (Cardiothoracic Vascular Surgery); ATTEND Thoracic Surgery (Cardiothoracic Vascular Surgery)
PROC: 02100Z9 Bypass Coronary Artery, One Artery from Left Internal Mammary, Open Approach (ICD-10-PCS; principal; 2018-01-01)
PROC: 021209W Bypass Coronary Artery, Three Arteries from Aorta with Autologous Venous Tissue, Open Approach (ICD-10-PCS; 2018-01-01)
PROC: 06BQ0ZZ Excision of Left Saphenous Vein, Open Approach (ICD-10-PCS; 2018-01-01)
PROC: 5A1221Z Performance of Cardiac Output, Continuous (ICD-10-PCS; 2018-01-01)
DX: I25.10 Atherosclerotic heart disease of native coronary artery without angina pectoris (principal); J96.01 Acute respiratory failure with hypoxia; J98.11 Atelectasis; I10 Essential (primary) hypertension; E78.5 Hyperlipidemia, unspecified; Z96.641 Presence of right artificial hip joint; Z87.891 Personal history of nicotine dependence; Z01.812 Encounter for preprocedural laboratory examination
CPT/HCPCS: 36415; 36416; 36430; 71045; 80048; 82805; 85025; 85027; 85610; 85730; 86850; 86900; 86901; 93005; 93010; 93798; 94002; 94640; J1642; J1644; J1815; J1885; J2001; J2150; J2250; J2370; J2440; J2704; J2720; J3010; J3370; J3475; J3480; J7050; J7620; P9045; S0017

== ENCOUNTER 2017-12-31 11:53 | Outpatient (CLI) | payer BC ==
[2017-12-31 13:20] LABS: Hemoglobin 14.5 g/dL (14.0-18.0); Mean Corpuscular HGB CONC 32.1 g/dL (32.0-36.0); Mean Corpuscular Hemoglobin 30.8 pg (27.0-31.0); Mean Corpuscular Volume 95.8 fL (78.0-98.0); Mean Platelet Volume 7.4 fL (7.4-10.4); Platelet Count 240 thou/uL (130-400); White Blood Cell (WBC) Count 5.7 thou/uL (4.8-10.8)
[2017-12-31 13:42] LABS: Anion Gap 13 mmol/L (10-20); BUN (Urea Nitrogen) 14 mg/dL (8.4-25.7); Calc. Creatinine Clearance 0 mL/min (70-130); Calcium 9.6 mg/dL (7.8-10.44); Carbon Dioxide 22 mmol/L (23-31); Chloride 107 mmol/L (98-107); Estimated GFR-MDRD 63; Glucose 99 mg/dL (80-115); Potassium 4.6 mmol/L (3.5-5.1); Sodium 137 mmol/L (136-145)
== END 2017-12-31 11:54 | disposition home or self-care (01) ==
LOC: LABBT 11:53
PROVIDERS: ATTEND Thoracic Surgery (Cardiothoracic Vascular Surgery)
DX: Z01.812 Encounter for preprocedural laboratory examination (principal); I25.10 Atherosclerotic heart disease of native coronary artery without angina pectoris
CPT/HCPCS: 80048; 85027; 86850; 86900; 86901

== ENCOUNTER 2018-05-11 07:50 | Outpatient (CLI) | payer BC ==
--- NOTE | 2018-05-11 09:06 | RAD ---
TWO VIEWS OF THE CHEST: COMPARISON: 01/04/2018. HISTORY: Dyspnea. FINDINGS: Two views of the chest show a normal-size cardiomediastinal silhouette. The patient is status post s ternotomy. There is no evidence of consolidation, mass, or pleural effusion. Degenerative changes a re seen in the spine. IMPRESSION: No evidence of acute cardiopulmonary disease. POS: [facility]
== END 2018-05-11 07:51 | disposition home or self-care (01) ==
LOC: RAD 07:50
PROVIDERS: ATTEND Internal Medicine Critical Care Medicine
DX: R06.00 Dyspnea, unspecified (principal)
CPT/HCPCS: 71046

== ENCOUNTER 2019-05-11 13:20 | Outpatient (CLI) | payer MEDICARE, BC ==
--- NOTE | 2019-05-11 14:33 | RAD ---
PA AND LATERAL CHEST: 05/11/19 HISTORY: Dyspnea. COMPARISON: 05/11/18 study. Heart size is within normal limits. There are postop sternotomy changes. The lungs are clear of infil trates. There is some arthritic changes of the spine. IMPRESSION: No active intrathoracic disease. POS: [facility]
== END 2019-05-11 13:21 | disposition home or self-care (01) ==
LOC: RAD 13:20
PROVIDERS: ATTEND Internal Medicine Critical Care Medicine
DX: R06.00 Dyspnea, unspecified (principal)
CPT/HCPCS: 71046

== ENCOUNTER 2020-02-01 13:25 | Outpatient (CLI) | payer MEDICARE, BC ==
--- NOTE | 2020-02-01 14:01 | CT ---
CT pulmonary lung scan without IV contrast INDICATION: Lung cancer screening protocol; history of being a former smoker, proximal a 1 pack per d ay for 40 years; quit 3 years agopersonal history of smoking COMPARISON: None FINDINGS: LUNGS: Nodules\mass: No suspicious nodule demonstrated. Emphysema: Moderate to severe emphysema Additional findings: There is postsurgical change of a prior CABG. There are coronary artery and thor acic aortic calcifications. Mediastinum: There is a small hiatal hernia. No definite enlarged lymph nodes are evident. Upper abdomen: Adrenal glands appear within normal limits. Osseous structures: There is scattered degenerative and osteoarthritic change present. No acute fract ure or subluxation demonstrated.. IMPRESSION: Lung-RADS Category 2: Benign- Continue annual screening with LDCT in 12 months Category S: Moderate to severe emphysema; coronary artery and thoracic aortic calcifications.; Small hiatal hernia Category C: Not applicable.
== END 2020-02-01 13:26 | disposition home or self-care (01) ==
LOC: BICCT 13:25
PROVIDERS: ATTEND Internal Medicine
DX: Z12.2 Encounter for screening for malignant neoplasm of respiratory organs (principal); Z87.891 Personal history of nicotine dependence; J43.9 Emphysema, unspecified; I25.10 Atherosclerotic heart disease of native coronary artery without angina pectoris; I70.0 Atherosclerosis of aorta; K44.9 Diaphragmatic hernia without obstruction or gangrene
CPT/HCPCS: G0297

== ENCOUNTER 2023-01-22 09:03 | Outpatient (CLI) | payer MEDICARE, BC | END 2023-01-22 09:04 | disposition home or self-care (01) | LOC: RAD 09:03 | PROVIDERS: ATTEND Internal Medicine Critical Care Medicine | DX: R06.00 Dyspnea, unspecified (principal); J98.4 Other disorders of lung | CPT/HCPCS: 71046 ==

== ENCOUNTER 2023-03-05 08:14 | Outpatient (CLI) | payer MEDICARE, BC | END 2023-03-05 08:15 | disposition home or self-care (01) | LOC: RAD 08:14 | PROVIDERS: ATTEND Internal Medicine Critical Care Medicine | DX: R06.00 Dyspnea, unspecified (principal); J98.4 Other disorders of lung | CPT/HCPCS: 71046 ==

== ENCOUNTER 2023-03-05 15:03 | Outpatient (CLI) | payer MEDICARE, BC | END 2023-03-05 15:04 | disposition home or self-care (01) | LOC: BICCT 15:03 | PROVIDERS: ATTEND Internal Medicine Critical Care Medicine | DX: R91.1 Solitary pulmonary nodule (principal); J98.11 Atelectasis; J98.4 Other disorders of lung | CPT/HCPCS: 71046; 71250 ==

== ENCOUNTER 2024-01-01 09:34 | Outpatient (CLI) | payer MEDICARE, BC ==
[2024-01-01 11:06] LABS: #Basophils 0.04 10x3/uL (0.0-0.2); %Basophils 0.6 % (0.0-1.0); %Eosinophils 0.8 % (0.0-10.0); %Lymphocytes 17.8 % (21.0-51.0); %Monocytes 10.6 % (0.0-10.0); %Neutrophils 69.6 % (42.0-75.0); Hematocrit 45.3 % (42.0-52.0); Hemoglobin 15.3 g/dL (14.0-18.0); Mean Corpuscular HGB CONC 33.8 g/dL (32.0-36.0); Mean Corpuscular Hemoglobin 32.1 pg (27.0-31.0); Mean Corpuscular Volume 95.2 fL (78.0-98.0); Mean Platelet Volume 11.2 fL (7.4-10.4); Platelet Count 160 10x3/uL (130-400); RBC Distribution Width 15.3 % (11.5-14.5); Red Blood Cell (RBC) Count 4.76 mill/uL (4.70-6.10)
[2024-01-01 11:23] LABS: Anion Gap 11 mmol/L (10-20); BUN (Urea Nitrogen) 15 mg/dL (8.4-25.7); Calc. Creatinine Clearance 0 mL/min (70-130); Calcium 9.4 mg/dL (7.8-10.44); Carbon Dioxide 26 mmol/L (23-31); Chloride 104 mmol/L (98-107); Estimated GFR 55; Glucose 103 mg/dL (80-115); Potassium 4.3 mmol/L (3.5-5.1); Sodium 137 mmol/L (136-145)
[2024-01-01 11:39] LABS: INR-International Normal Ratio 1.1; Prothrombin Time 13.7 sec (12.0-14.7)
== END 2024-01-01 09:35 | disposition home or self-care (01) ==
LOC: LABBT 09:34
PROVIDERS: ATTEND Orthopaedic Surgery Hand Surgery
DX: Z01.818 Encounter for other preprocedural examination (principal); M18.0 Bilateral primary osteoarthritis of first carpometacarpal joints
CPT/HCPCS: 80048; 85025; 85610; 87081; 93005; 93010

== ENCOUNTER 2024-01-05 14:03 | Day surgery (SDC) | payer MEDICARE, BC ==
[2024-01-01 10:00] VITALS: BMI 30.7
[2024-01-05] MEDS ORDERED: Bupivacaine HCl 0.5%/Epinephrine 1:200,000/PF 30 ml Vial ONE (17:01)
[2024-01-05] MEDS ORDERED: Lidocaine 1% PF 5 ML VIAL ONE (17:29)
[2024-01-05] MEDS ORDERED: fentaNYL PF 100 MCG/2 ML SYRINGE ONE ×2 (17:30→22:11)
[2024-01-05] MEDS ORDERED: PROPOFOL 20 ML ONE (17:30)
[2024-01-05] MEDS ORDERED: CEFAZOLIN 2 GM VIAL ONE (17:30)
[2024-01-05] MEDS ORDERED: Sterile Water 10 ML ONE (17:34)
[2024-01-05] MEDS ORDERED: Dexamethasone 20 MG/5 ML VIAL ONE (17:50)
[2024-01-05] MEDS ORDERED: PHENYLEPHRINE-NS 100 MCG/ML 10 ML SYRINGE ONE (17:56)
[2024-01-05] MEDS ORDERED: ePHEDrine Sulfate 50 MG/10 ML VIAL ONE (18:13)
[2024-01-05] MEDS ORDERED: Rocuronium Bromide 10 MG/ML (10ML VIAL) ONE (18:41)
[2024-01-05] MEDS ORDERED: fentaNYL 50 mcg/mL 1 mL Vial ONE ×2 (18:54→19:52)
[2024-01-05] MEDS ORDERED: NEOSTIGMINE 3 MG/3 ML SYRINGE ONE (18:55)
[2024-01-05] MEDS ORDERED: Glycopyrrolate 0.2 MG/ML 5 ML SYRINGE ONE (18:58)
[2024-01-05] MEDS ORDERED: Bacitracin Zinc Ointment 30 gm TUBE ONE (19:36)
[2024-01-05] MEDS ORDERED: Ketorolac Tromethamine 30 MG (1 mL) VIAL ONE (22:18)
== END 2024-01-05 23:03 | disposition home or self-care (01) ==
LOC: SDC 14:03
PROVIDERS: ATTEND Orthopaedic Surgery Hand Surgery
PROC: 0RGV0JZ Fusion of Left Metacarpophalangeal Joint with Synthetic Substitute, Open Approach (ICD-10-PCS; principal; 2024-01-05)
PROC: 0RRP0JZ Replacement of Left Wrist Joint with Synthetic Substitute, Open Approach (ICD-10-PCS; 2024-01-05)
DX: M18.0 Bilateral primary osteoarthritis of first carpometacarpal joints (principal); I11.9 Hypertensive heart disease without heart failure; I71.40 Abdominal aortic aneurysm, without rupture, unspecified; J44.9 Chronic obstructive pulmonary disease, unspecified; Z98.890 Other specified postprocedural states; Z95.1 Presence of aortocoronary bypass graft; Z90.79 Acquired absence of other genital organ(s); Z87.891 Personal history of nicotine dependence; Z96.641 Presence of right artificial hip joint; Z79.899 Other long term (current) drug therapy; Z79.82 Long term (current) use of aspirin; Z91.040 Latex allergy status
CPT/HCPCS: 25310; 25447; 26516; 73110; C1713 ×2; C1894; J1100; J1885; J2704; J3010

== ENCOUNTER 2024-03-14 07:59 | Outpatient (CLI) | payer MEDICARE, BC | END 2024-03-14 08:00 | disposition home or self-care (01) | LOC: BICCT 07:59 | PROVIDERS: ATTEND Internal Medicine Critical Care Medicine | DX: R91.1 Solitary pulmonary nodule (principal) | CPT/HCPCS: 36415; 71260; 82565 ==